=== PATIENT | male | born 1945 | race Caucasian/White ===

== ENCOUNTER 2017-03-04 11:16 | Emergency (ER) | payer MEDICARE, BC ==
[2017-03-04 11:27] VITALS: BP 154/84
--- NOTE | 2017-03-04 11:40 | EDM.PDOC ---
ED HPI SEIZURE COMPLAINT - General Chief Complaint: Syncope Stated Complaint: MEDICAL [facility] Time Seen by Provider: 03/04/17 11:38 Source: Reports: Patient, Family History Limitations: Reports: No limitations - History of Present Illness INITIAL COMMENTS - FREE TEXT/NARRATIVE: pt was having coffee and he was sitting there and he passed out 3 times. Timing/Duration: Reports: sudden onset, other (pt feels he has not been drinking and eating normally. ) Event (Witnessed/Unwitnessed): witnessed Quality: Reports: other (pt was not responding. ) - Related Data Allergies/ADRs: Allergies Allergy/AdvReac Type Severity Reaction Status Date / Time adhesive tape Allergy Itching Verified 12/11/16 23:37 codeine AdvReac Other Verified 12/11/16 23:37 Home Meds: Home Meds Cetirizine [ZyrTEC] 10 mg PO DAILY PRN 11/22/13 [History] Citalopram Hydrobromide [Celexa] 40 mg PO DAILY 11/22/13 [History] Cyanocobalamin (Vitamin B-12) [Vitamin B-12] 1,000 mcg SL DAILY 11/22/13 [ History] Multivitamin [Multi-Vitamin Daily] 1 each PO BID 11/22/13 [History] Vitamin B Complex [B Complex] 1 each PO DAILY 11/22/13 [History] Zolpidem [Ambien] 5 mg PO BEDTIME PRN 11/22/13 [History] Pantoprazole [ProTONIX] 40 mg PO DAILY #30 tab.cr 11/24/13 [Rx] Cholecalciferol (Vitamin D3) [Vitamin D3] 5,000 units PO DAILY 09/18/15 [History ] Iron,Carbonyl/Ascorbic Acid [Vitron-C Tablet] 1 tab PO BID 09/18/15 [History] Magnesium Oxide 600 mg PO BID 09/18/15 [History] Mometasone Furoate [Nasonex [place]] 2 spray ROMEL DAILY 09/18/15 [History] Simvastatin [Zocor] 20 mg PO BEDTIME 09/18/15 [History] Tadalafil [Cialis] 5 mg PO DAILY 09/18/15 [History] Aspirin [Adult Low Dose Aspirin EC] 81 mg PO DAILY #0 09/23/15 [Rx] Ibuprofen [Motrin] 600 mg PO Q8H tablet 09/23/15 [Rx] Prochlorperazine Maleate [Compazine] 10 mg PO .Q6H PRN 10/23/15 [History] Bisacodyl [Dulcolax] 10 mg PO DAILY PRN 10/25/15 [History] Sennosides/Docusate Sodium [Senna Laxative Tablet] 2 tab PO BEDTIME 10/25/15 [ History] Diphenhyd/Lidocaine/Nystatin [Magic Mouthwash] 5 ml PO QID PRN 04/22/16 [History ] Diphenoxylate HCl/Atropine [Diphenoxylate-Atrop 2.5-0.025] 2 tab PO TID [History] Ferrous Fumarate/Vit C/B12-IF [Fetrin SA] 1 tab PO BID 04/22/16 [History] Potassium Bicarb/Potassium Chl [Potassium Chloride] 20 meq PO BID 04/22/16 [ History] Saliva Substitution Comb No.10 [Neutrasal] 1 pkg PO ASDIRECTED 04/22/16 [History ] Sucralfate 1 gram PO QID 04/22/16 [History] Triamterene/Hydrochlorothiazid [Triamterene-HCTZ 37.5-25 MG] 0.5 tab PO DAILY [History] Vitamin B Complex [B Complex] 1 tab PO DAILY 04/22/16 [History] metroNIDAZOLE [metroNIDAZOLE 0.75% Gel] 1 applic TOP BID 04/22/16 [History] Past Medical History HEENT History: Reports: Hard of hearing, Impaired vision, Sinusitis Cardiovascular History: Reports: Aneurysm, High cholesterol, Hypertension Other Cardiovascular History: Brain aneurysm with clip placed Gastrointestinal History: Reports: Colon polyp, Gastritis, GERD, Hemorrhoids, Hiatal hernia, PUD, Other (see below) Other Gastrointestinal History: gastrectomy Genitourinary History: Reports: Prostate disorder Musculoskeletal History: Reports: Arthritis, Back pain, chronic, Fracture, Osteoarthritis Neurological History: Reports: Cerebral aneurysms, Concussion Other Neuro History: brain anuerysm Psychiatric History: Reports: Anxiety, Other (see below) Other Psychiatric History: claustrophobic Endocrine/Metabolic History: Reports: Diabetes, type II, Other (see below) Other Endocrine/Metabolic History: hx-before RNY Hematologic History: Reports: B12 deficiency, Blood transfusion(s), Iron deficiency Oncologic (Cancer) History: Reports: Other (see below) Other Oncologic History: appendix, lymph node. colon cancer - Infectious Disease History Infectious Disease History: Reports: Chicken pox - Past Surgical History HEENT Surgical History: Reports: Other (see below) Other HEENT Surgeries/Procedures: biopsy left side of tongue Cardiovascular Surgical History: Reports: Aneurysm, Other (see below) Other Cardiovascular Surgeries/Procedures: brain aneurysm Respiratory Surgical History: Reports: None GI Surgical History: Reports: Bariatric procedure, Colonoscopy, Polypectomy, Other (see below) Other GI Surgeries/Procedures: pepic ulcer removed hemorrhoidectomy fissure Male Surgical History: Reports: Vasectomy Neurological Surgical History: Reports: Lumbar spine Musculoskeletal Surgical History: Reports: Arthroscopic knee, Shoulder surgery Dermatological Surgical History: Reports: None Social & Family History - Tobacco Use Smoking Status *Q: Never Smoker Years of Tobacco use: 39 Packs/Tins Daily: 2 Used Tobacco, but Quit: Yes Month Tobacco Last Used: 2001 Second Hand Smoke Exposure: No - Caffeine Use Caffeine Use: Reports: Coffee - Alcohol Use Days Per Week of Alcohol Use: 0 - Recreational Drug Use Recreational Drug Use: No ED ROS GENERAL - Review of Systems Review Of Systems: See Below Constitutional: Reports: malaise, weakness HEENT: Reports: No symptoms Respiratory: Reports: No Symptoms Cardiovascular: Reports: No symptoms, Other (No hest pain) Endocrine: Reports: no symptoms : Reports: no symptoms Musculoskeletal: Reports: no symptoms Skin: Reports: no symptoms Neurological: Reports: Headache, Syncope, Other ( while having coffee with some of his friends) Psychiatric: Reports: Other (pt does get depressed when her paingets r) Hematologic/Lymphatic: Reports: no symptoms - Physical Exam Exam: See Below Text/Narrative:: Pt arrived with a history of passing out prior to arrival. He did pass out 3 times just briefly. Exam Limited By: No limitations General Appearance: alert, no apparent distress, anxious Ears: normal TMs Nose: normal inspection Throat/Mouth: Normal inspection Head Exam: atraumatic Neck: normal inspection Respiratory/Chest: no respiratory distress Cardiovascular: regular rate, rhythm GI/Abdominal: soft, non tender (Male) Exam: Deferred Rectal (Males) Exam: Deferred Neuro Exam (Abbreviated): alert, oriented, normal cognition Back Exam: normal inspection Extremities: normal inspection Psychiatric: normal mood Course - Vital Signs Last Recorded V/S: Last Vital Signs Temp 37.1 C 03/04/17 11:21 Pulse 60 03/04/17 11:21 Resp 16 03/04/17 11:21 BP 154/84 H 03/04/17 11:21 Pulse Ox 94 L 03/04/17 11:21 Orthostatic Blood Pressure [ 137/81 Sitting] Orthostatic Blood Pressure [ 149/84 Standing] Orthostatic Blood Pressure [ 144/69 Supine] - Orders/Labs/Meds Orders: Active Orders 24 hr Category Date Time Status EKG Documentation Completion [RC] ASDIRECTED Care 03/04/17 11:36 Active Orthostatic Vital Signs [RC] ASDIRECTED Care 03/04/17 11:37 Active Sodium Chloride 0.9% [Normal Saline] 1,000 ml Med 03/04/17 11:45 Active IV ASDIRECTED Sodium Chloride 0.9% [Normal Saline] 1,000 ml Med 03/04/17 14:00 Active IV ASDIRECTED EKG 12 Lead [EK] Routine Ther 03/04/17 11:36 Ordered Medication Orders Sodium Chloride (Normal Saline) 1,000 mls @ 500 mls/hr IV ASDIRECTED [facility] Last Admin: 03/04/17 12:02 Dose: 500 mls/hr Sodium Chloride (Normal Saline) 1,000 mls @ 999 mls/hr IV ASDIRECTED [facility] Last Admin: 03/04/17 13:57 Dose: 999 mls/hr Labs: Laboratory Tests 03/04/17 03/04/17 03/04/17 Range/Units 11:36 11:49 11:49 WBC 6.6 (4.5-11.0) K/uL RBC 4.50 (4.30-5.90) M/uL Hgb 12.9 D (12.0-15.0) g/dL Hct 39.9 L (40.0-54.0) % MCV 89 (80-98) fL MCH 29 (27-31) pg MCHC 32 (32-36) % Plt Count 154 (150-400) K/uL Neut % (Auto) 72 H (36-66) % Lymph % (Auto) 11 L (24-44) % [place] % (Auto) 11 H (2-6) % Eos % (Auto) 6 H (2-4) % Baso % (Auto) 1 (0-1) % Sodium 144 (140-148) mmol/L Potassium 3.3 L (3.6-5.2) mmol/L Chloride 109 H (100-108) mmol/L Carbon Dioxide 27 (21-32) mmol/L Anion Gap 11.3 (5.0-14.0) mmol/L BUN 25 H (7-18) mg/dL Creatinine 1.6 H (0.8-1.3) mg/dL Est Cr Clr Drug Dosing 43.79 mL/min Estimated GFR (MDRD) 43 L (>60) Glucose 175 H (74-106) mg/dL Calcium 7.5 L (8.5-10.1) mg/dL Total Bilirubin 0.6 (0.2-1.0) mg/dL AST 16 (15-37) U/L ALT 19 (12-78) U/L Alkaline Phosphatase 142 H (46-116) U/L Creatine Kinase 61 (39-308) U/L Troponin I 0.028 (0.000-0.056) ng/mL Total Protein 6.6 (6.4-8.2) g/dL Albumin 3.5 (3.4-5.0) g/dL Globulin 3.1 (2.3-3.5) g/dL Albumin/Globulin Ratio 1.1 L (1.2-2.2) Urine Color Urine Appearance Urine pH (4.5-8.0) Ur Specific [place] (1.008-1.030) Urine Protein (NEGATIVE) mg/dL Urine Glucose (UA) (NEGATIVE) mg/dL Urine Ketones (NEGATIVE) mg/dL Urine Occult Blood (NEGATIVE) Urine Nitrite (NEGAITVE) Urine Bilirubin (NEGATIVE) Urine Urobilinogen (NORMAL) mg/dL Ur Leukocyte Esterase (NEGATIVE) Urine RBC (0-5) Urine WBC (0-5) Ur Epithelial Cells Amorphous Sediment Urine Bacteria Urine Mucus Urine Other 03/04/17 Range/Units 13:38 WBC (4.5-11.0) K/uL RBC (4.30-5.90) M/uL Hgb (12.0-15.0) g/dL Hct (40.0-54.0) % MCV (80-98) fL MCH (27-31) pg MCHC (32-36) % Plt Count (150-400) K/uL Neut % (Auto) (36-66) % Lymph % (Auto) (24-44) % [place] % (Auto) (2-6) % Eos % (Auto) (2-4) % Baso % (Auto) (0-1) % Sodium (140-148) mmol/L Potassium (3.6-5.2) mmol/L Chloride (100-108) mmol/L Carbon Dioxide (21-32) mmol/L Anion Gap (5.0-14.0) mmol/L BUN (7-18) mg/dL Creatinine (0.8-1.3) mg/dL Est Cr Clr Drug Dosing mL/min Estimated GFR (MDRD) (>60) Glucose (74-106) mg/dL Calcium (8.5-10.1) mg/dL Total Bilirubin (0.2-1.0) mg/dL AST (15-37) U/L ALT (12-78) U/L Alkaline Phosphatase (46-116) U/L Creatine Kinase (39-308) U/L Troponin I (0.000-0.056) ng/mL Total Protein (6.4-8.2) g/dL Albumin (3.4-5.0) g/dL Globulin (2.3-3.5) g/dL Albumin/Globulin Ratio (1.2-2.2) Urine Color Yellow Urine Appearance Slightly cloudy Urine pH 6.0 (4.5-8.0) Ur Specific [place] 1.015 (1.008-1.030) Urine Protein Negative (NEGATIVE) mg/dL Urine Glucose (UA) Normal (NEGATIVE) mg/dL Urine Ketones Negative (NEGATIVE) mg/dL Urine Occult Blood Negative (NEGATIVE) Urine Nitrite Negative (NEGAITVE) Urine Bilirubin Negative (NEGATIVE) Urine Urobilinogen Normal (NORMAL) mg/dL Ur Leukocyte Esterase Negative (NEGATIVE) Urine RBC 0-5 (0-5) Urine WBC 0-5 (0-5) Ur Epithelial Cells Rare Amorphous Sediment Rare Urine Bacteria Not seen Urine Mucus Rare Urine Other See note Meds: Medications Generic Name Dose Route Start Last Admin Trade Name Freq PRN Reason Stop Dose Admin Sodium Chloride 1,000 mls @ 500 mls/hr 03/04/17 11:45 03/04/17 12:02 Normal Saline IV 500 mls/hr ASDIRECTED SARMAD Administration Sodium Chloride 1,000 mls @ 999 mls/hr 03/04/17 14:00 03/04/17 13:57 Normal Saline IV 999 mls/hr ASDIRECTED SARMAD Administration - Re-Assessments/Exams Free Text/Narrative Re-Assessment/Exam: 03/04/17 14:25 pt had normal labs . He had good vital signs. . He definitely does not have a headache. With fluids he is feeling better. He was able to eat lunch. He states he has had similar episodes in the past. Departure - Departure Time of Disposition: 15:22 Disposition: Home, Self-Care 01 Condition: fair Clinical Impression: Syncope, Dehydration Referrals: Polo Saba MD [Primary Care Provider] - Forms: ED Department Discharge Care Plan Goals: push fluids, low activity today, rtc if further problems. - My Orders Last 24 Hours: My Active Orders 03/04/17 11:36 EKG Documentation Completion [RC] ASDIRECTED EKG 12 Lead [EK] Routine 03/04/17 11:37 Orthostatic Vital Signs [RC] ASDIRECTED 03/04/17 11:45 Sodium Chloride 0.9% [Normal Saline] 1,000 ml IV ASDIRECTED 03/04/17 14:00 Sodium Chloride 0.9% [Normal Saline] 1,000 ml IV ASDIRECTED - Assessment/Plan Last 24 Hours: My Active Orders 03/04/17 11:36 EKG Documentation Completion [RC] ASDIRECTED EKG 12 Lead [EK] Routine 03/04/17 11:37 Orthostatic Vital Signs [RC] ASDIRECTED 03/04/17 11:45 Sodium Chloride 0.9% [Normal Saline] 1,000 ml IV ASDIRECTED 03/04/17 14:00 Sodium Chloride 0.9% [Normal Saline] 1,000 ml IV ASDIRECTED
[2017-03-04] MEDS ORDERED: Sodium Chloride 0.9% 1,000 ML IV SCH ×2 (11:45→14:00)
== END 2017-03-04 15:29 | disposition home or self-care (01) ==
LOC: JP.ED 11:16
DX: R55 Syncope and collapse (principal); E86.0 Dehydration; I10 Essential (primary) hypertension; E78.00 Pure hypercholesterolemia, unspecified; K21.9 Gastro-esophageal reflux disease without esophagitis; F41.9 Anxiety disorder, unspecified; E11.9 Type 2 diabetes mellitus without complications; Z85.038 Personal history of other malignant neoplasm of large intestine; Z98.84 Bariatric surgery status; Z98.890 Other specified postprocedural states; Z98.52 Vasectomy status; Z79.82 Long term (current) use of aspirin; Z79.899 Other long term (current) drug therapy; Z88.5 Allergy status to narcotic agent; Z91.048 Other nonmedicinal substance allergy status
CPT/HCPCS: 36415; 80053; 81001; 82550; 84484; 85025; 93005; 96360; 96361; 99284; J7040; 93010

== ENCOUNTER 2018-11-26 08:22 | Day surgery (SDC) | payer MEDICARE, BC ==
[2018-11-26] MEDS ORDERED: Lactated Ringers 1,000 ML IV SCH (09:00)
[2018-11-26] MEDS ORDERED: Propofol 200 MG/20 ML SDV ONE ×2 (10:36→11:07)
[2018-11-26] MEDS ORDERED: fentaNYL 100 MCG/2 ML SDV ONE (10:36)
[2018-11-26 13:03] VITALS: BP 139/75
--- NOTE | 2018-11-26 13:23 | OR ---
DATE OF PROCEDURE: 11/26/2018 PREOPERATIVE DIAGNOSES: 1. History of carcinoma of the appendix. 2. Father had colon cancer. POSTOPERATIVE DIAGNOSES: 1. History of carcinoma of the appendix. 2. Father had colon cancer. 3. Unremarkable colonoscopy. PROCEDURE PERFORMED: Colonoscopy to the ileotransverse colon anastomosis. ANESTHESIA: IV anesthesia with monitored anesthesia care. INDICATION: This 73-year-old white male underwent an appendectomy laparoscopically in 2014. This returned adenocarcinoma. He underwent subsequently, a couple of weeks later, a right hemicolectomy. He is here now for followup colonoscopy. Additionally, his father had colon cancer. I counseled him for the colonoscopy with possible biopsy and/or polypectomy, including risks and alternatives, and he gave his informed consent to proceed. DESCRIPTION OF PROCEDURE: The patient was placed in the left lateral decubitus position. IV anesthesia was administered by the Anesthesia Service. Time-out was held. A rectal exam was performed, which was unremarkable. The flexible video Olympus colonoscope was introduced through his anus, up his rectum and out his colon, all way to the ileotransverse colon anastomosis. Once we reached the anastomosis, the scope was slowly withdrawn examining the mucosa throughout. No mucosal abnormalities were noted. The scope was retroflexed in the rectum with the distal rectum appearing unremarkable. The scope was straightened and removed. He tolerated the procedure well. Giles Ballard MD /[id number]
== END 2018-11-26 13:15 | disposition home or self-care (01) ==
LOC: JP.SDS 08:22
PROVIDERS: ATTEND Surgery
DX: Z12.11 Encounter for screening for malignant neoplasm of colon (principal); I10 Essential (primary) hypertension; E11.9 Type 2 diabetes mellitus without complications; Z86.010 Personal history of colon polyps; Z85.038 Personal history of other malignant neoplasm of large intestine; Z90.89 Acquired absence of other organs; Z90.49 Acquired absence of other specified parts of digestive tract; Z80.0 Family history of malignant neoplasm of digestive organs; Z88.5 Allergy status to narcotic agent; Z91.048 Other nonmedicinal substance allergy status
CPT/HCPCS: G0105; J2704; J3010; J7120

== ENCOUNTER 2020-04-30 08:40 | Day surgery (SDC) | payer MEDICARE, BC ==
[~2020-04-30 08:40] MED LIST: Bupivacaine 0.5% 50 ML MDV ONE; Lidocaine 1% with EPINEPHrine 1:100,000 50 ML MDV ONE
[2020-04-30] MEDS ORDERED: Dextrose 5%-Lactated Ringers 1,000 ML IV SCH (10:00)
[2020-04-30] MEDS ORDERED: Propofol 200 MG/20 ML SDV ONE ×3 (10:13→11:17)
[2020-04-30] MEDS ORDERED: Midazolam 1 MG/ML 2 ML SDV ONE (10:14)
[2020-04-30] MEDS ORDERED: fentaNYL 100 MCG/2 ML SDV ONE (10:14)
[2020-04-30] MEDS ORDERED: ceFAZolin 2 GM in Premix Bag 1 BAG IV ONE (10:15)
[2020-04-30] MEDS ORDERED: Bacitracin Oint 1 GM U/D Packet ONE (11:02)
[2020-04-30 12:49] VITALS: BP 128/73; PULSE 64
--- NOTE | 2020-05-07 13:40 | OR ---
DATE OF PROCEDURE: 04/30/2020 SURGEON: Renaldo Greer MD PREOPERATIVE DIAGNOSES: 1. 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 2. Strong family history of colon carcinoma. 3. Normal exam to ileocolic anastomosis. OPERATIVE PROCEDURE: Flexible colonoscopy. ANESTHESIA: IV sedation. INDICATIONS FOR PROCEDURE: This 75-year-old male is status post a right hemicolectomy for what was variously called either right colon cancer or appendiceal carcinoma. At any rate, he has had no evidence of recurrence, but then also has a very strong family history of colon carcinoma with several siblings having colon carcinoma. He is presently on a 2-year followup cycle for his colonoscopies. Plan is to proceed with flexible colonoscopy with biopsies and/or polypectomy as indicated. Potential risks of the procedure including bleeding and perforation were discussed, and the patient wishes to proceed. DETAILS OF PROCEDURE: The patient was taken to the operating room and placed in a left lateral decubitus position. IV sedation was administered, after which the initial digital rectal exam was performed and was unremarkable. Colonoscope was then passed into the rectum with retroflexion revealing uncomplicated hemorrhoidal columns. Scope was then passed to the area of the ileocolic anastomosis in the transverse colon. To that level, no abnormalities were noted. The patient was noted to have a quite poor prep, but around 90% of the surfaces were visualized, and certainly, any large polyps or tumors would likely be seen. Scope was then withdrawn, the above findings reconfirmed, and the procedure then concluded. The recommendation would be to continue this patient on a 2-year cycle with the colonoscopies, given his personal and family history, next colonoscopy should be not longer than about 2 years. Renaldo Greer MD /[id number]
== END 2020-04-30 13:12 | disposition home or self-care (01) ==
LOC: JP.SDS 08:40
PROVIDERS: ATTEND Surgery
DX: Z12.11 Encounter for screening for malignant neoplasm of colon (principal); K64.9 Unspecified hemorrhoids; I10 Essential (primary) hypertension; E11.9 Type 2 diabetes mellitus without complications; Z80.0 Family history of malignant neoplasm of digestive organs; Z98.890 Other specified postprocedural states; Z85.038 Personal history of other malignant neoplasm of large intestine; Z98.0 Intestinal bypass and anastomosis status; Z90.49 Acquired absence of other specified parts of digestive tract
CPT/HCPCS: 88300; 88305; G0105; J0690; J2250; J2704; J3010; J3490; J7121

== ENCOUNTER 2020-07-16 15:23 | Emergency (ER) | payer MEDICARE, BC ==
--- NOTE | 2020-07-16 15:56 | EDM.PDOC ---
ED HPI GENERAL MEDICAL PROBLEM - General Chief Complaint: Syncope Stated Complaint: [facility] Time Seen by Provider: 07/16/20 15:30 Source of Information: Reports: Patient, EMS History Limitations: Reports: No Limitations - History of Present Illness INITIAL COMMENTS - FREE TEXT/NARRATIVE: 75-year-old male who has a previous history of syncopal episodes while on chemotherapy, was at a gas station today filling gas in his car when somebody else came in that he recognized. He went over to visit with them but while standing next to the car and visiting he felt dizzy and had to reach out and steady himself against the car. The next thing he knows he was on the ground and people were worried and calling the ambulance. He did not hurt himself. Right after EMS got there and he was sitting up he had a second episode where he went unresponsive for a few seconds. EKGs have shown bundle branch block per EMS and these were reviewed. He was hypotensive initially but is better now, rate is in the 50s and is steady. He did not have shortness of breath, chest pain, nausea or vomiting. Onset: Sudden (2 separate sudden episodes within the last hour) Associated Symptoms: Reports: Other (Memory loss of both events, otherwise no other symptoms) - Related Data Allergies Allergy/AdvReac Type Severity Reaction Status Date / Time adhesive tape Allergy Itching Verified 04/30/20 09:27 codeine AdvReac Other Verified 04/30/20 09:27 Home Meds: Home Meds Cetirizine [ZyrTEC] 10 mg PO DAILY PRN 11/22/13 [History] Citalopram Hydrobromide [Celexa] 40 mg PO BEDTIME 11/22/13 [History] Multivitamin [Multi-Vitamin Daily] 1 each PO BID 11/22/13 [History] Mometasone Furoate [Nasonex [place]] 2 spray ROMEL DAILY 09/18/15 [History] Tamsulosin HCl [Flomax] 0.4 mg PO BEDTIME 11/04/18 [History] Potassium Chloride [Klor-Con M20] 40 meq PO BEDTIME 04/27/20 [History] Acetaminophen/Diphenhydramine [Tylenol Pm Ex-Strength Caplet] 1 each PO BEDTIME 04/30/20 [History] Melatonin/Pyridoxine HCl (B6) [Melatonin 5 mg Tablet] 1 each PO BEDTIME 04/30/20 [History] Aspirin [Adult Low Dose Aspirin EC] 81 mg PO BEDTIME 07/16/20 [History] Past Medical History HEENT History: Reports: Cataract, Hard of Hearing, Impaired Vision, Sinusitis Cardiovascular History: Reports: Aneurysm, High Cholesterol, Hypertension Other Cardiovascular History: Brain aneurysm with clip placed Gastrointestinal History: Reports: Colon Polyp, Gastritis, GERD, Hemorrhoids, Hiatal Hernia, PUD, Other (See Below) Other Gastrointestinal History: gastrectomy Genitourinary History: Reports: Prostate Disorder Musculoskeletal History: Reports: Arthritis, Back Pain, Chronic, Fracture, Osteoarthritis Neurological History: Reports: Cerebral Aneurysms, Concussion Other Neuro History: brain anuerysm Psychiatric History: Reports: Anxiety Other Psychiatric History: claustrophobic Endocrine/Metabolic History: Reports: Diabetes, Type II, Obesity/BMI 30+ Other Endocrine/Metabolic History: hx-before RNY Hematologic History: Reports: B12 Deficiency, Blood Transfusion(s), Iron Deficiency Oncologic (Cancer) History: Reports: Other (See Below) Other Oncologic History: "I've had cancer in my appendix but it was treated as colon cancer" also tounge - Infectious Disease History Infectious Disease History: Reports: Chicken Pox, Measles, Mumps - Past Surgical History Head Surgeries/Procedures: Reports: Other (See Below) HEENT Surgical History: Reports: None, Oral Surgery, Other (See Below) Other HEENT Surgeries/Procedures: teeth extracted Cardiovascular Surgical History: Reports: Aneurysm, Other (See Below) Respiratory Surgical History: Reports: None GI Surgical History: Reports: Appendectomy, Bariatric Procedure, Colonoscopy, Polypectomy, Other (See Below) Other GI Surgeries/Procedures: Gastric Bypass approx 10 years ago according to patient Neurological Surgical History: Reports: Lumbar Spine Musculoskeletal Surgical History: Reports: Arthroscopic Knee, Shoulder Surgery Dermatological Surgical History: Reports: None Social & Family History - Family History Family Medical History: Noncontributory - Tobacco Use Smoking Status *Q: Former Smoker Used Tobacco, but Quit: Yes Month/Year Tobacco Last Used: 30 - Caffeine Use Caffeine Use: Reports: None ED ROS GENERAL - Review of Systems Review Of Systems: See Below Constitutional: Denies: Fever, Chills HEENT: Reports: Other (Had 5 teeth removed 4 days ago, recovering well) Respiratory: Denies: Shortness of Breath, Cough Cardiovascular: Denies: Chest Pain, Palpitations GI/Abdominal: Denies: Abdominal Pain, Nausea, Vomiting Skin: Reports: No Symptoms Neurological: Reports: Weakness (Now feels back to baseline). Denies: Headache, Trouble Speaking, Difficulty Walking - Physical Exam Exam: See Below Exam Limited By: No Limitations General Appearance: Alert, No Apparent Distress Eye Exam: Bilateral Eye: EOMI, PERRL Head Exam: Atraumatic Neck: Supple, Non-Tender Respiratory/Chest: Lungs Clear Cardiovascular: Regular Rate, Rhythm, Other (A few ectopic beats, correlating with PACs on the monitor) GI/Abdominal: Soft, Non-Tender Extremities: Normal Inspection. No: Pedal Edema Psychiatric: Normal Affect, Normal Mood Skin Exam: Warm, Dry EKG INTERPRETATION QRS: LBBB (EKG shows a significant left bundle branch block and a few PACs, this is unchanged from an EKG 2 years ago) Course - Vital Signs Last Recorded V/S: Last Vital Signs Temp 96.4 F L 07/16/20 15:24 Pulse 45 L 07/16/20 16:40 Resp 15 07/16/20 16:40 BP 137/75 07/16/20 16:40 Pulse Ox 96 07/16/20 16:40 - Orders/Labs/Meds Labs: Laboratory Tests 07/16/20 07/16/20 Range/Units 16:02 16:02 WBC 4.9 (4.5-11.0) K/uL RBC 4.25 L (4.30-5.90) M/uL Hgb 12.0 (12.0-15.0) g/dL Hct 39.0 L (40.0-54.0) % MCV 92 (80-98) fL MCH 28 (27-31) pg MCHC 31 L (32-36) % Plt Count 134 L (150-400) K/uL Neut % (Auto) 76 H (36-66) % Lymph % (Auto) 12 L (24-44) % [place] % (Auto) 8 H (2-6) % Eos % (Auto) 3 (2-4) % Baso % (Auto) 1 (0-1) % Sodium 147 (140-148) mmol/L Potassium 3.7 (3.6-5.2) mmol/L Chloride 110 H (100-108) mmol/L Carbon Dioxide 26 (21-32) mmol/L Anion Gap 14.7 H (5.0-14.0) mmol/L BUN 24 H (7-18) mg/dL Creatinine 1.9 H (0.8-1.3) mg/dL Est Cr Clr Drug Dosing 34.15 mL/min Estimated GFR (MDRD) 35 L (>60) Glucose 94 (74-106) mg/dL Calcium 8.1 L (8.5-10.1) mg/dL Total Bilirubin 0.6 (0.2-1.0) mg/dL AST 15 (15-37) U/L ALT 13 (12-78) U/L Alkaline Phosphatase 96 (46-116) U/L Troponin I < 0.017 (0.000-0.056) ng/mL Total Protein 5.9 L (6.4-8.2) g/dL Albumin 3.1 L (3.4-5.0) g/dL Globulin 2.8 (2.3-3.5) g/dL Albumin/Globulin Ratio 1.1 L (1.2-2.2) - Re-Assessments/Exams Free Text/Narrative Re-Assessment/Exam: 07/16/20 15:57 Patient likely had a vasovagal syncopal episode, he will be kept on the monitor for the next 45 minutes and a CBC, CMP and troponin were obtained. 07/16/20 17:06 Patient was monitored for 1-1/2 hours on telemetry the emergency room and had no arrhythmias, labs returned baseline and he then ambulated around the emergency room without difficulty. He wants to go home, so he will be discharged with a diagnosis of vagal syncope. Departure - Departure Time of Disposition: 17:54 Disposition: Home, Self-Care 01 Clinical Impression: Vasovagal syncopes - Discharge Information Instructions: Syncope, [id number] Referrals: PCP,None [Primary Care Provider] - Forms: ED Department Discharge Care Plan Goals: Continue your current medications, stay hydrated and activity as tolerated. Return anytime if symptoms are recurring or you develop other concerns. Sepsis Event Note (ED) - Evaluation Sepsis Screening Result: No Definite Risk
[2020-07-16 16:41] VITALS: BP 137/75; PULSE 45
== END 2020-07-16 17:54 | disposition home or self-care (01) ==
LOC: JP.ED 15:23
DX: R55 Syncope and collapse (principal); I10 Essential (primary) hypertension; M19.90 Unspecified osteoarthritis, unspecified site; F41.9 Anxiety disorder, unspecified; E11.9 Type 2 diabetes mellitus without complications; E66.9 Obesity, unspecified; Z68.24 Body mass index [BMI] 24.0-24.9, adult; Z87.891 Personal history of nicotine dependence; Z88.5 Allergy status to narcotic agent; Z91.048 Other nonmedicinal substance allergy status; Z79.899 Other long term (current) drug therapy; I44.7 Left bundle-branch block, unspecified; Z79.82 Long term (current) use of aspirin
CPT/HCPCS: 36415; 80053; 84484; 85025; 93005; 93010; 99284-25